=== PATIENT | male | born 1960 | race African-American/Black ===

== ENCOUNTER 2021-06-19 00:55 | Emergency (ER) | payer MEDICAID ==
[~2021-06-19] VITALS: Ht 180.3 cm; Wt 91.0 kg
[2021-06-19] MEDS ORDERED: MORPHINE SULFATE 4 MG/ML CPJ (NOT FOR IM USE) IV STA (01:23)
[2021-06-19] MEDS ORDERED: ONDANSETRON HCL 4MG/2ML INJ IV STA (01:23)
[2021-06-19 02:21] LABS: HEMATOCRIT. 34.4 % (42.0-52.0); HEMOGLOBIN. 11.5 g/dL (14.0-18.0); MEAN CORPUSCULAR HEMOGLOBIN 26.9 pg (28.0-32.0); MEAN CORPUSCULAR VOLUME 80.7 fL (80.0-94.0); MEAN PLATELET VOLUME 8.5 fl (7.4-10.4); PLATELET 208 x1000/uL (130-400); RED BLOOD CELL COUNT 4.26 mill/uL (4.7-6.1); RED CELL DISTRIBUTION WIDTH 15.7 % (11.6-14.6)
[2021-06-19 02:32] LABS: CLARITY URINE CLEAR (CLEAR); COLOR URINE YELLOW (YELLOW); KETONES URINE NEGATIVE (NEGATIVE); LEUKOCYTE ESTERASE URINE NEGATIVE (NEGATIVE); NITRITE URINE NEGATIVE (NEGATIVE); OCCULT BLOOD URINE NEGATIVE (NEGATIVE); PROTEIN URINE TRACE (NEGATIVE); SPECIFIC GRAVITY URINE 1.013 (1.005-1.030); UROBILINOGEN URINE 0.2 E.U./dL (0.2-1.0)
[2021-06-19 02:38] LABS: BETA HYDROXYBUTYRATE 0.1 mMol/L (0.0-0.3); CHLORIDE 103 mEq/L (98-107); ETHANOL BLOOD < 10 mg/dL
[2021-06-19 02:41] LABS: PLATELET ESTIMATE NORMAL
[2021-06-19 02:44] LABS: *AMPHETAMINES SCREEN URINE NEGATIVE (NEGATIVE); CANNABINOID URINE SCREEN NEGATIVE (NEGATIVE); OPIATES URINE SCREEN NEGATIVE (NEGATIVE); PHENCYCLIDINE URINE SCREEN NEGATIVE (NEGATIVE)
[2021-06-19 02:45] LABS: *BARBITURATES SCREEN URINE NEGATIVE (NEGATIVE); *BENZODIAZEPINES SCREEN URINE NEGATIVE (NEGATIVE); *COCAINE SCREEN URINE NEGATIVE (NEGATIVE); METHADONE URINE SCREEN NEGATIVE (NEGATIVE)
[2021-06-19 06:00] VITALS: BP 114/67
[2021-06-19] MEDS ORDERED: ONDANSETRON 4MG ODT PO ONE (06:45)
[2021-06-19] MEDS ORDERED: ONDA4TAB5 MT (10:54)
== END 2021-06-19 06:52 | disposition home or self-care (01) ==
LOC: ER 00:55
DX: E11.65 Type 2 diabetes mellitus with hyperglycemia (principal); R10.9 Unspecified abdominal pain; Z98.890 Other specified postprocedural states
CPT/HCPCS: 36415; 71045; 80053; 80305; 80320; 81003; 82010; 83690; 84484; 85025; 96374; 96375; 99284; J2270; J2405; Q0162; G0480

== ENCOUNTER 2021-06-19 08:25 | Emergency (ER) | payer MEDICAID, OTHER ==
[~2021-06-19] VITALS: Ht 177.8 cm; Wt 73.0 kg
[2021-06-19 08:51] LABS: HEMATOCRIT. 31.7 % (42.0-52.0); HEMOGLOBIN. 10.5 g/dL (14.0-18.0); MEAN CORPUSCULAR HEMOGLOBIN 26.9 pg (28.0-32.0); MEAN CORPUSCULAR VOLUME 81.6 fL (80.0-94.0); MEAN PLATELET VOLUME 8.4 fl (7.4-10.4); PLATELET 191 x1000/uL (130-400); RED BLOOD CELL COUNT 3.89 mill/uL (4.7-6.1); RED CELL DISTRIBUTION WIDTH 15.8 % (11.6-14.6)
[2021-06-19 08:58] LABS: CHLORIDE 105 mEq/L (98-107)
[2021-06-19] MEDS ORDERED: ONDANSETRON HCL 4MG/2ML INJ IV STA (08:59)
[2021-06-19] MEDS ORDERED: SODIUM CHLORIDE 0.9% 1,000 ML IV ONE (09:00)
[2021-06-19 09:47] LABS: PLATELET ESTIMATE NORMAL
[2021-06-19] MEDS ORDERED: ONDA4TAB5 MT (10:54)
[2021-06-19 21:30] VITALS: BP 140/77
== END 2021-06-19 21:45 | disposition home or self-care (01) ==
LOC: ER 08:25
DX: R10.33 Periumbilical pain (principal); R11.2 Nausea with vomiting, unspecified; E11.9 Type 2 diabetes mellitus without complications
CPT/HCPCS: 36415; 74176; 80053; 82962; 83690; 85025; 96361; 96374; 99285; J2405; J7030